=== PATIENT | male | born 1960 | race Caucasian/White ===

== ENCOUNTER 2018-01-06 09:55 | Emergency (ER) | payer OTHER ==
[~2018-01-06] VITALS: Ht 165.1 cm; Wt 94.3 kg
[2018-01-06 10:03] VITALS: Ht 165.1 cm; Wt 94.3 kg
[2018-01-06 11:07] VITALS: BP 127/101
== END 2018-01-06 11:07 | disposition home or self-care (01) ==
LOC: ED 09:55
DX: S01.01XD Laceration without foreign body of scalp, subsequent encounter (principal); W18.30XD Fall on same level, unspecified, subsequent encounter; Z86.73 Personal history of transient ischemic attack (TIA), and cerebral infarction without residual deficits